=== PATIENT | female | born 2000 | race Two or more races ===

== ENCOUNTER 2024-12-26 14:38 | Outpatient (AMB) | payer MEDICAID, SELFPAY ==
[2024-12-26 15:00] VITALS: BP 125/85; PULSE 99; RESP 18; TEMP 37.1; O2SAT 97; BMI 38.1
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
== END 2024-12-26 15:38 | disposition home or self-care (01) ==
LOC: HODSOBC 14:38
PROVIDERS: Supervising Provider Advanced Practice Midwife; Visit Provider Advanced Practice Midwife
DX: O09.92 Supervision of high risk pregnancy, unspecified, second trimester (principal); Z3A.20 20 weeks gestation of pregnancy
CPT/HCPCS: 99214; G0463

== ENCOUNTER 2025-01-25 14:49 | Outpatient (AMB) | payer MEDICAID, SELFPAY ==
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
[2025-01-25 14:51] VITALS: BP 125/86; PULSE 122; RESP 17; TEMP 36.8; O2SAT 99; BMI 38.5
== END 2025-01-25 15:38 | disposition home or self-care (01) ==
LOC: HODSOBC 14:49
PROVIDERS: Supervising Provider Advanced Practice Midwife; Visit Provider Advanced Practice Midwife
DX: Z34.02 Encounter for supervision of normal first pregnancy, second trimester (principal); Z3A.24 24 weeks gestation of pregnancy
CPT/HCPCS: 99214; G0463

== ENCOUNTER 2025-02-28 14:14 | Outpatient (AMB) | payer MEDICAID, SELFPAY ==
[2025-02-28 14:17] VITALS: BP 108/75; PULSE 97; RESP 18; TEMP 36.6; O2SAT 99; BMI 39.2
--- NOTE | 2025-02-28 14:17 | OBCLNT_ITS ---
Vital Signs 02/28/25 14:17 Height 1.6 m Height Method Stated Weight 100.357 kg Weight Measurement Method Standing Scale BMI 39.2 BP 108/75 Blood Pressure Source Automatic Cuff Blood Pressure Location Left Upper Arm Position Sitting Respiration 18 Pulse 97 Pulse Source Monitor Temp 97.8 F Temp Source Oral Pulse Oximetry (%) 99 Oxygen Delivery Method Room Air Allergies/Home Meds Allergies & Medications Allergies No Known Allergies Allergy (Mild, Uncoded 02/28/25 14:41) Hives Medication Reconciliation aspirin 81 mg tablet,delayed release (Adult Aspirin Regimen) 81 mg PO QDAY #30 tabs 01/25/25 [Rx Confirmed 02/28/25] Immunizations Immunizations Flu Vaccine in the Last 12 Months: Yes Date of most recent flu vaccination: 02/28/25 Flu Vaccine Exclusion Criteria: Already Received Care OB Visit Log OB Flowsheet Initial Weight: Not Recorded Date -?-?-?-?-?-?-?-?-?-?-?-?- EGA Weight BP Alb Glu CTX Pres Fundal ht FHR Mov Dilation Station Effacement Hx Notes Visit Note 12/26/24 -?-?-?-?-?-?-?-?-?-?-?-?- 20w 0d 97.692 kg 125/85 absent unknown 20 135 absent 24-year-old 1 para 0 for OBI. Last. August 08, 2024. Estimated due date May 13, 2025. Patient is not sure if she is feeling movement or not. Denies leaking, denies bleeding, denies contractions. And patient is taking vitamins. Schedule patient for anatomy scan with Dr. Ugarte. Patient was given a lab slip for OB panel today along with NIPT and carrier screen. And hemoglobin A1c. Refill prenatals. I discussed diet and weight gain with patient and regular exercise. Return in 4 weeks for OB check 01/25/25 -?-?-?-?-?-?-?-?-?-?-?-?- 24w 2d 98.656 kg 125/86 absent unknown 24 135 active Reports movement. Denies labor complaints. Denies leaking, bleeding, contractions. Third trimester labs today. Reviewed labs today. Discussed labor precautions. Start low-dose baby aspirin 1 daily. Lots of fluids. And MFM appointment pending 02/28/25 -?-?-?-?-?-?-?-?-?-?--?-?- 29w 1d 100.357 kg 108/75 absent unknown 29 135 active Fetus active. Reports good movement. Denies contractions, bleeding, leaking Tdap and flu vaccine today. Discussed labor precautions. Patient has a follow- up with MFM in March. Return in 3 weeks OB check NATO Calculator Estimated Delivery Date Method Current WG Current Estimate 05/15/25 LMP (Certain) 29w 1d Notes Visit Date: 02/28/25 Last Updated by: Kristin Jacobs CNM 3rd tri lab wnl. 1 hr gtt: 97 Visit Date: 01/25/25 Last Updated by: Kristin Jacobs CNM NIPT-,SMA-, AFP- O+,abs-, rpr;;nr, rub NI, HBSAG-,HIV-,HC-, GC/Ct-, UA-, UT-, A1c: 4.9 Visit Date: 12/26/24 Last Updated by: Kristin Jacobs CNM 24 yo . LMP 08/08/24. EDC: 05/13/25 Office Procedures OBC Clinic LOC & Office Proc's Nursing/Assessment Patient Status: Established Patient OB Clinic Nursing Assessment: Medication Reconciliation, Update PMH in EMR and Vital Signs OB Clinic Coordination of Care: Complex Care and Chronic Disease 1-5, Consent,records obtained, informed consent, Education Simp Pt/Fam, 1 Ins Authorization, Lab and Imaging orders, Results/Orders obtained and Staff clarify orders Special Needs: Heart tones Established Patient Charge Established Patient Point Assignment: 150 Established Patient Point Charge: EP Level 4 (120-155) Injection/Vaccine Admin SQ Im Injection: Yes Immunizations flu vac ts (6mos up)-PF 45 mcg(15mcg x3)/0.5 mL IM syringe Performing Provider: Kristin Jacobs CNM Performing Location: [facility] Administered by: Laurel Goldsmith MA on 02/28/25 15:37 Dose Route Admin Location Dispensed Lot Number Expiration Date Pack age [facility] Customer Success Advocate 0.5 mL IM Left Deltoid 0.5 mL [id number] 10/10/25 [id number] [employer] VIS Given Date VIS Provided VIS Publication Date 02/28/25 Single Vaccine 24 Eligibility Eligibility Date Funding Source Public Non-[facility] diphth,pertus(acell),tetanus 2.5 Lf unit-8 mcg-5 Lf/0.5mL IM syringe Performing Provider: Kristin Jacobs CNM Performing Location: [facility] Administered by: Laurel Goldsmith MA on 02/28/25 15:38 Dose Route Admin Location Dispensed Lot Number Expiration Date Pack age [facility] [place] Customer Success Advocate 0.5 mL IM Left Deltoid 0.5 mL [id number] 09/23/27 [id number] [employer] VIS Given Date VIS Provided VIS Publication Date 02/28/25 Single Vaccine 24 Eligibility Eligibility Date Funding Source Public Non-[facility] Assessment & Plan Diagnosis / Problem List (1) Encounter for supervision of high risk in third trimester, antepartum: Status: Acute Plan Discussed labor precautions. Tdap and flu vaccine today. Patient has a follow-up with Charanjit in March. Return in 3 weeks OB check Additional Plan Follow Up: 3 Weeks (obc)
== END 2025-02-28 14:52 | disposition home or self-care (01) ==
LOC: HODSOBC 14:14
PROVIDERS: Supervising Provider Advanced Practice Midwife; Visit Provider Advanced Practice Midwife
DX: O09.93 Supervision of high risk pregnancy, unspecified, third trimester (principal); Z3A.29 29 weeks gestation of pregnancy; Z23 Encounter for immunization
CPT/HCPCS: 90471; 90686; 90715; 96372; 99214; G0463; J9060

== ENCOUNTER 2025-03-15 14:54 | Outpatient (AMB) | payer MEDICAID, SELFPAY ==
[2025-03-15 14:59] VITALS: BP 126/83; PULSE 115; RESP 18; TEMP 36.2; O2SAT 98; BMI 39.7
--- NOTE | 2025-03-15 14:59 | AMB.OBPNC ---
Vital Signs 03/15/25 14:59 Height 1.6 m Height Method Stated Weight 101.718 kg Weight Measurement Method Standing Scale BMI 39.7 BP 126/83 Blood Pressure Source Automatic Cuff Blood Pressure Location Left Upper Arm Position Sitting Respiration 18 Pulse 115 H Pulse Source Monitor Temp 97.2 F Temp Source Oral Pulse Oximetry (%) 98 Oxygen Delivery Method Room Air Allergies/Home Meds Allergies & Medications Allergies No Known Allergies Allergy (Mild, Uncoded 03/15/25 15:00) Hives Medication Reconciliation aspirin 81 mg tablet,delayed release (Adult Aspirin Regimen) 81 mg PO QDAY #30 tabs 01/25/25 [Rx Confirmed 03/15/25] Immunizations Immunizations Flu Vaccine in the Last 12 Months: No Flu Vaccine Exclusion Criteria: Already Received Care OB Visit Log OB Flowsheet Initial Weight: Not Recorded Date <del>?</del> EGA Weight BP Alb Glu CTX Pres Fundal ht FHR Mov Dilation Station Effacement Hx Notes Visit Note 12/26/24 <del>?</del> 20w 0d 97.692 kg 125/85 absent unknown 20 135 absent 24-year-old 1 para 0 for OBI. Last. August 08, 2024. Estimated due date May 13, 2025. Patient is not sure if she is feeling movement or not. Denies leaking, denies bleeding, denies contractions. And patient is taking vitamins. Schedule patient for anatomy scan with Dr. Ugarte. Patient was given a lab slip for OB panel today along with NIPT and carrier screen. And hemoglobin A1c. Refill prenatals. I discussed diet and weight gain with patient and regular exercise. Return in 4 weeks for OB check 01/25/25 <del>?</del> 24w 2d 98.656 kg 125/86 absent unknown 24 135 active Reports movement. Denies labor complaints. Denies leaking, bleeding, contractions. Third trimester labs today. Reviewed labs today. Discussed labor precautions. Start low-dose baby aspirin 1 daily. Lots of fluids. And MFM appointment pending 02/28/25 <del>?</del> 29w 1d 100.357 kg 108/75 absent unknown 29 135 active Fetus active. Reports good movement. Denies contractions, bleeding, leaking Tdap and flu vaccine today. Discussed labor precautions. Patient has a follow-up with [facility] in March. Return in 3 weeks OB check 03/15/25 <del>?</del> 31w 2d 101.718 kg 126/83 absent unknown 30 135 active Reports good movement. Denies contractions. Denies leaking or bleeding. Discussed diet and weight gain. Walk 40 minutes a day. Kick count twice a day. Return in 2 weeks OB check. Patient has an appointment with [facility] next Thursday NATO Calculator Estimated Delivery Date Method Current WG Current Estimate 05/15/25 LMP (Certain) 31w 2d Notes Visit Date: 02/28/25 Last Updated by: Kristin Jacobs CNM 3rd tri lab wnl. 1 hr gtt: 97 Visit Date: 01/25/25 Last Updated by: Kristin Jacobs CNM NIPT-,SMA-, AFP- O+,abs-, rpr;;nr, rub NI, HBSAG-,HIV-,HC-, GC/Ct-, UA-, UT-, A1c: 4.9 Visit Date: 12/26/24 Last Updated by: Kristin Jacobs CNM 24 yo . LMP 08/08/24. EDC: 05/13/25 Office Procedures OBC Clinic LOC & Office Proc's Nursing/Assessment Patient Status: Established Patient OB Clinic Nursing Assessment: Medication Reconciliation, Update PMH in EMR and Vital Signs OB Clinic Coordination of Care: Consent,records obtained, informed consent, Education Simp Pt/Fam, Lab and Imaging orders, Results/Orders obtained and Staff clarify orders Special Needs: Heart tones Established Patient Charge Established Patient Point Assignment: 110 Established Patient Point Charge: EP Level 3 (80-115) Assessment & Plan Diagnosis / Problem List (1) Encounter for supervision of high risk in third trimester, antepartum: Status: Acute Plan Kick count twice a day. Discussed labor precautions. Discussed diet and weight gain. Increase fluids. Continue prenatals. Maternal- medicine appointment March 22 Additional Plan Follow Up: 2 Weeks (obc)
== END 2025-03-15 15:39 | disposition home or self-care (01) ==
LOC: HODSOBC 14:54
PROVIDERS: Supervising Provider Advanced Practice Midwife; Visit Provider Advanced Practice Midwife
DX: O09.93 Supervision of high risk pregnancy, unspecified, third trimester (principal); Z3A.31 31 weeks gestation of pregnancy
CPT/HCPCS: 99213; G0463

== ENCOUNTER 2025-03-30 11:26 | Outpatient (AMB) | payer MEDICAID, SELFPAY ==
--- NOTE | 2025-03-30 11:31 | OBCLNT_ITS ---
Vital Signs 03/30/25 11:41 Height 1.6 m Height Method Stated Weight 103.532 kg Weight Measurement Method Standing Scale BMI 40.4 BP 114/76 Blood Pressure Source Automatic Cuff Blood Pressure Location Left Upper Arm Position Sitting Respiration 20 Pulse 100 Pulse Source Monitor Temp 97.8 F Temp Source Oral Pulse Oximetry (%) 98 Oxygen Delivery Method Room Air Allergies/Home Meds Allergies & Medications Allergies No Known Allergies Allergy (Mild, Uncoded 03/30/25 11:44) Hives Medication Reconciliation aspirin 81 mg tablet,delayed release (Adult Aspirin Regimen) 81 mg PO QDAY #30 tabs 01/25/25 [Rx Confirmed 03/30/25] vitamins-iron fumarate 66 mg iron-folic acid 1 mg tablet tab PO 03/30/25 [History Confirmed 03/30/25] Immunizations Immunizations Flu Vaccine in the Last 12 Months: Yes Date of most recent flu vaccination: 02/28/25 Flu Vaccine Exclusion Criteria: Already Received Care OB Visit Log OB Flowsheet Initial Weight: Not Recorded Date -?-?-?-?-?-?-?-?-?-?-?-?- EGA Weight BP Alb Glu CTX Pres Fundal ht FHR Mov Dilation Station Effacement Hx Notes Visit Note 12/26/24 -?-?-?-?-?-?-?-?-?-?-?-?- 20w 0d 97.692 kg 125/85 absent unknown 20 135 absent 24-year-old 1 para 0 for OBI. Last. August 08, 2024. Estimated due date May 13, 2025. Patient is not sure if she is feeling movement or not. Denies leaking, denies bleeding, denies contractions. And patient is taking vitamins. Schedule patient for anatomy scan with Dr. Ugarte. Patient was given a lab slip for OB panel today along with NIPT and carrier screen. And hemoglobin A1c. Refill prenatals. I discussed diet and weight gain with patient and regular exercise. Return in 4 weeks for OB check 01/25/25 -?-?-?-?-?-?-?-?-?-?-?-?- 24w 2d 98.656 kg 125/86 absent unknown 24 135 active Reports movement. Denies labor complaints. Denies leaking, bleeding, contractions. Third trimester labs today. Reviewed labs today. Discussed labor precautions. Start low-dose baby aspirin 1 daily. Lots of fluids. And [facility] appointment pending 02/28/25 -?-?-?-?-?-?-?-?-?-?-?-?- 29w 1d 100.357 kg 108/75 absent unknown 29 135 active Fetus active. Reports good movement. Denies contractions, bleeding, leaking Tdap and flu vaccine today. Discussed labor precautions. Patient has a follow-up with [facility] in March. Return in 3 weeks OB check 03/15/25 -?-?-?-?-?-?-?-?-?-?-?-?- 31w 2d 101.718 kg 126/83 absent unknown 30 135 active Reports good movement. Denies contractions. Denies leaking or bleeding. Discussed diet and weight gain. Walk 40 minutes a day. Kick count twice a day. Return in 2 weeks OB check. Patient has an appointment with [facility] next Thursday03/30/25 -?-?-?-?-?-?-?-?-?-?-?-?- 33w 3d 103.532 kg 114/76 absent unknown 33 135 active Reports good movement. Denies leaking, bleeding, contractions. Patient complains of low back pain and ligament pain Disc ussed ultrasound and dates. Discussed comfort measures for ligament and back pain discussed kick count twice a day and parameters. And labor precautions and return 2 weeks OB check [employer] Cal[employer] Estimated Delivery Date Method Current WG Current Estimate 05/15/25 LMP (Certain) 33w 3d Other Estimates 05/15/25 Ultrasound #1 33w 3d 05/15/25 Manual 33w 3d final nato, EFW: 27% Notes Visit Date: 02/28/25 Last Updated by: Kristin Jacobs CNM 3rd tri lab wnl. 1 hr gtt: 97 Visit Date: 01/25/25 Last Updated by: Kristin Jacobs CNM NIPT-,SMA-, AFP- O+,abs-, rpr;;nr, rub NI, HBSAG-,HIV-,HC-, GC/Ct-, UA-, UT-, A1c: 4.9 Visit Date: 12/26/24 Last Updated by: Kristin Jacobs CNM 24 yo . LMP 08/08/24. EDC: 05/13/25 Office Procedures [facility] LOC & Office Proc's Nursing/Assessment Patient Status: Established Patient OB Clinic Nursing Assessment: Medication Reconciliation, Update PMH in EMR and Vital Signs OB Clinic Coordination of Care: Complex Care and Chronic Disease 1-5, Consent,records obtained, informed consent, Education Simp Pt/Fam, 1 Ins Authorization, Lab and Imaging orders, Results/Orders obtained and Staff clarify orders Special Needs: Heart tones Established Patient Charge Established Patient Point Assignment: 150 Established Patient Point Charge: EP Level 4 (120-155) Assessment & Plan Diagnosis / Problem List (1) Encounter for supervision of high risk in third trimester, antepartum: Status: Acute Plan Reviewed dates. Discussed labor precautions. Discussed kick count twice a day. Discussed danger signs symptoms. Return in 2 weeks OB check Additional Plan Follow Up: 2 Weeks (obc)
[2025-03-30 11:41] VITALS: BP 114/76; PULSE 100; RESP 20; TEMP 36.6; O2SAT 98; BMI 40.4
== END 2025-03-30 12:03 | disposition home or self-care (01) ==
LOC: HODSOBC 11:26
PROVIDERS: Supervising Provider Advanced Practice Midwife; Visit Provider Advanced Practice Midwife
DX: O09.893 Supervision of other high risk pregnancies, third trimester (principal); O99.891 Other specified diseases and conditions complicating pregnancy; M54.50 Low back pain, unspecified; Z3A.33 33 weeks gestation of pregnancy
CPT/HCPCS: 99214; G0463